=== PATIENT | female | born 1935 | race Caucasian/White ===

== ENCOUNTER → 2016-05-14 | Outpatient (CLI) | payer MEDICARE, BC ==
[~2016-05-14] MED LIST: AMIT50TA3 PO; AMOX-348 PO; CALC1TAB40 PO; DULO60CA56 PO; FAMO20TA8 PO; FISH1CAP59 PO; GABA-215 PO; GABA-222 PO; LACT1CAP32 PO; LEVO88TA7 PO; LORA0.5T86 PO; MIRT30TA6 PO; NYST15CR TOP; OXYC-541 PO; PENT100C8 PO; PRED-219 PO; SIMV20TA89 PO; TRIA15CR2 TOP; WARF2TAB6 PO; [UNRECOGNIZED DRUG - CODE] BOTH EYES; [UNRECOGNIZED DRUG - CODE] PO
== END ==
LOC: WC.BC 13:28
DX: Z12.31 Encounter for screening mammogram for malignant neoplasm of breast (principal)
CPT/HCPCS: 77063; G0202